=== PATIENT | male | born 1990 | race Two or more races ===

== ENCOUNTER 2024-11-28 04:27 | Emergency (ER) | payer OTHER, BC ==
[2024-11-28 04:48] LABS: BASOPHILS ABSOLUTE AUTO 0.03 K/uL (0.00-0.20); BASOPHILS PERCENT AUTO 0.2 % (0.0-1.0); EOSINOPHILS ABSOLUTE AUTO 0.04 K/uL (0.00-0.45); EOSINOPHILS PERCENT AUTO 0.3 % (0.0-6.0); HEMATOCRIT 44.6 % (42.0-52.0); HEMOGLOBIN 15.3 g/dL (14.0-18.0); IMMATURE GRAN ABSOLUTE AUTO 0.04 K/uL (0.00-0.05); IMMATURE GRAN PERCENT AUTO 0.3 % (0.0-0.4); LYMPHOCYTES ABSOLUTE AUTO 1.49 K/uL (1.00-4.80); LYMPHOCYTES PERCENT AUTO 10.5 % (24.0-44.0); MEAN CORPUSCULAR HEMOGLOBIN 30.1 pg (28.0-32.0); MEAN CORPUSCULAR HGB CONC 34.3 g/dL (32.0-36.0); MEAN CORPUSCULAR VOLUME 87.6 fL (83.0-99.0); MEAN PLATELET VOLUME 10.2 fL (9.4-12.4); MONOCYTES ABSOLUTE AUTO 0.81 K/uL (0.00-0.80); MONOCYTES PERCENT AUTO 5.7 % (0.0-8.0); NEUTROPHILS ABSOLUTE AUTO 11.76 K/uL (1.80-7.70); PLATELET COUNT,PLT 256 K/uL (150-400); RED BLOOD CELL COUNT 5.09 M/uL (4.52-5.90); WHITE BLOOD CELL COUNT,WBC 14.17 K/uL (3.9-11.3)
[2024-11-28] MEDS ORDERED: Ketorolac 30 MG/ML SDV IVPUSH PRN (04:48)
[2024-11-28] MEDS ORDERED: Ondansetron 4 MG/2 ML SDV IVPUSH PRN (04:48)
[2024-11-28] MEDS ORDERED: Acetaminophen 500 MG Tab PO PRN (04:48)
[2024-11-28 04:49] LABS: BILIRUBIN,URINE NEGATIVE (NEGATIVE); GLUCOSE,URINE NEGATIVE (NEGATIVE); KETONES,URINE NEGATIVE (NEGATIVE); LEUKOCYTE ESTERASE,URINE LARGE (NEGATIVE); NITRITE,URINE NEGATIVE (NEGATIVE); OCCULT BLOOD,URINE LARGE (NEGATIVE); PH,URINE 6.5 (5.0-8.0); PROTEIN,URINE 100 mg/dL (NEGATIVE); UROBILINOGEN,URINE 0.2 EU/dL (<2.0)
[2024-11-28 05:01] LABS: CALCIUM 8.9 mg/dL (8.5-10.1); CARBON DIOXIDE,CO2 26.7 mmol/L (21.0-32.0); CREATININE 1.3 mg/dL (0.8-1.3); EST CRCL DRUG DOSING (CG) 69.65 mL/min; POTASSIUM,K 3.8 mmol/L (3.5-5.1)
[2024-11-28 05:04] LABS: APPEARANCE,URINE CLOUDY; COLOR,URINE RED
[2024-11-28 05:05] LABS: BACTERIA,URINE FEW (NEGATIVE); EPITHELIAL CELLS,URINE RARE (NONE-FEW); RBC,URINE 20-30 (0-2/HPF); WBC,URINE 75-100 (0-5/HPF)
[2024-11-28] MEDS: Sodium Chloride 0.9% 1,000 ML IV ONE (05:27)
[2024-11-28] MEDS: cefTRIAXone 2 GM in Water For Injection, Sterile 20 ML IVPUSH ONE (05:34)
[2024-11-28 07:02] LABS: C. TRACHOMATIS BY PCR NOT DETECTED; N. GONORRHOEAE BY PCR NOT DETECTED
== END 2024-11-28 06:39 | disposition home or self-care (01) ==
LOC: MW.ED 04:27
DX: N39.0 Urinary tract infection, site not specified (principal); R31.0 Gross hematuria; M54.50 Low back pain, unspecified; Z79.899 Other long term (current) drug therapy
CPT/HCPCS: 36415; 74176; 80048; 81001; 85025; 87086; 87088; 87186; 87491; 87591; 96361; 96374; 99284; J0696; J7030; 99283